=== PATIENT | female | born 1985 | race Caucasian/White ===

== ENCOUNTER 2025-06-01 23:18 | Emergency (ER) | payer SELFPAY ==
[~2025-06-01] VITALS: Ht 160 cm; Wt 50.0 kg
[2025-06-01 23:20] VITALS: O2SAT 100
[2025-06-02 01:56] VITALS: BP 103/77; PULSE 82; RESP 15; TEMP 36.9; O2SAT 98
== END 2025-06-02 02:00 ==
LOC: ER 23:18
DX: S06.9X9A Unspecified intracranial injury with loss of consciousness of unspecified duration, initial encounter (principal); W22.01XA Walked into wall, initial encounter; Y93.89 Activity, other specified; Y92.89 Other specified places as the place of occurrence of the external cause; Y99.8 Other external cause status
CPT/HCPCS: 81025; 99284